=== PATIENT | male | born 1975 | race Caucasian/White ===

== ENCOUNTER 2018-01-02 12:32 | Observation (INO) ==
[2018-01-02 14:11] LABS: Basophils # 0.1 K/mcL (0.0-0.2); Basophils % 0.5 %; Eosinophils # 0.2 K/mcL (0.0-0.6); Eosinophils % 1.4 %; Hematocrit 43.8 % (37.5-50.1); Hemoglobin 15.3 g/dL (12.9-16.9); Immature Granulocytes % 0.7 % (0-4); Lymphocytes # 1.7 K/mcL (0.6-4.6); Lymphocytes % 15.2 %; Mean Corpuscular HGB Conc 34.9 g/dL (31.6-35.5); Mean Corpuscular Volume 94.6 fL (83.0-100.0); Monocytes % 8.9 %; Neutrophils # 8.3 K/mcL (1.6-8.9); Platelet Count 345 K/mcL (140-400); Red Blood Count 4.63 M/mcL (4.19-5.50); Segmented Neutrophils % 73.3 %
[2018-01-02 14:32] LABS: BUN/Creatinine Ratio 16 (6-26); Blood Urea Nitrogen 13 mg/dL (6-20); Calcium 9.1 mg/dL (8.6-10.3); Carbon Dioxide 29 mEq/L (23-29); Chloride 103 mEq/L (98-107); Glucose 89 mg/dL (70-105); Osmolality,Calculated 286 (280-300); Sodium 138 mEq/L (136-145); eGFR For African Americans > 60 (> 60); eGFR For Non-African Americans > 60 (> 60)
[2018-01-02] MEDS ORDERED: Aspirin 325 MG TABLET PO ONE (14:43)
[2018-01-02] MEDS ORDERED: Nitroglycerin 0.4 MG TAB.SUBL SL PRN (14:43)
--- NOTE | 2018-01-02 14:44 | Emergency Department Note ---
Disposition Clinical Impression: Chest pain Disposition: Admitted As Inpatient Condition: Good General Adult HPI - General Chief complaint: ED Shortness of Breath/Dyspnea Stated complaint: CP/CIPRIANO Time Seen by Provider: 01/02/18 14:40 Source: patient Limitations: no limitations - History of Present Illness Pain Scale: 6 - Related Data Home Medications Medication Instructions Recorded Confirmed No Known Home Drugs 01/02/18 01/02/18 Allergies Allergy/AdvReac Type Severity Reaction Status Date / Time No Known Allergies Allergy Verified 01/02/18 12:47 Past Medical History - Past Medical History Medical history: Reports: arthritis Surgical history: Reports: non-contributory Psychiatric history: Reports: no psych history - Social History Smoking Status: Heavy tobacco smoker Smokeless Tobacco Status: Yes (occassional) Alcohol use: Reports: rarely Drug use: Reports: none Physical Exam - General Limitations: no limitations General appearance: alert, in no apparent distress Course Vital Signs Temperature 97.9 F 01/02/18 12:43 Pulse Rate 126 01/02/18 12:43 Respiratory Rate 18 01/02/18 12:43 Blood Pressure 131/93 01/02/18 12:43 O2 Sat by Pulse Oximetry 99 01/02/18 12:43 Temperature 98.1 F 01/02/18 16:12 Pulse Rate 83 01/02/18 16:12 Respiratory Rate 16 01/02/18 16:12 Blood Pressure 133/73 01/02/18 16:12 O2 Sat by Pulse Oximetry 99 01/02/18 16:12 Oxygen Delivery Oxygen Delivery Room Air Medical Decision Making - Lab Data Result diagrams: 01/02/18 13:41 01/02/18 13:41 Lab Results 01/02/18 01/02/18 01/02/18 Range/Units 13:41 13:41 13:41 WBC 11.3 H (4.3-11.1) K/mcL RBC 4.63 (4.19-5.50) M/mcL Hgb 15.3 (12.9-16.9) g/dL Hct 43.8 (37.5-50.1) % MCV 94.6 (83.0-100.0) fL MCH 33.0 (28.0-33.3) pg MCHC 34.9 (31.6-35.5) g/dL RDW 13.0 (11.5-14.5) % Plt Count 345 (140-400) K/mcL MPV 10.0 (9.4-12.4) fL Immature Gran % 0.7 (0-4) % Seg Neutrophils % 73.3 % Lymphocytes % 15.2 % Monocytes % 8.9 % Eosinophils % 1.4 % Basophils % 0.5 % Neutrophils # 8.3 (1.6-8.9) K/mcL Lymphocytes # 1.7 (0.6-4.6) K/mcL Monocytes # 1.0 (0.0-1.3) K/mcL Eosinophils # 0.2 (0.0-0.6) K/mcL Basophils # 0.1 (0.0-0.2) K/mcL D-Dimer (0-500) ng/mLFEU Sodium 138 (136-145) mEq/L Potassium 4.0 (3.5-5.1) mEq/L Chloride 103 (98-107) mEq/L Carbon Dioxide 29 (23-29) mEq/L BUN 13 (6-20) mg/dL Creatinine 0.81 (0.70-1.30) mg/dL Est GFR ( Amer) > 60 (> 60) Est GFR (Non-Af Amer) > 60 (> 60) BUN/Creatinine Ratio 16 (6-26) Glucose 89 (70-105) mg/dL Calculated Osmolality 286 (280-300) Lactic Acid (0.5-2.2) mmol/L Calcium 9.1 (8.6-10.3) mg/dL Troponin I < 0.03 (< 0.04) ng/mL B-Natriuretic Peptide 7 (Less than 100) pg/mL Triglycerides 36 (< 150) mg/dL Cholesterol 136 (< 200) mg/dL LDL Cholesterol, Calc 69 (0-99) mg/dL VLDL Cholesterol, Calc 7 (< 31) mg/dL HDL Cholesterol 60 H (40-59) mg/dL Cholesterol/HDL Ratio 2.3 (0-4.9) 01/02/18 01/02/18 Range/Units 13:41 14:00 WBC (4.3-11.1) K/mcL RBC (4.19-5.50) M/mcL Hgb (12.9-16.9) g/dL Hct (37.5-50.1) % MCV (83.0-100.0) fL MCH (28.0-33.3) pg MCHC (31.6-35.5) g/dL RDW (11.5-14.5) % Plt Count (140-400) K/mcL MPV (9.4-12.4) fL Immature Gran % (0-4) % Seg Neutrophils % % Lymphocytes % % Monocytes % % Eosinophils % % Basophils % % Neutrophils # (1.6-8.9) K/mcL Lymphocytes # (0.6-4.6) K/mcL Monocytes # (0.0-1.3) K/mcL Eosinophils # (0.0-0.6) K/mcL Basophils # (0.0-0.2) K/mcL D-Dimer 269 (0-500) ng/mLFEU Sodium (136-145) mEq/L Potassium (3.5-5.1) mEq/L Chloride (98-107) mEq/L Carbon Dioxide (23-29) mEq/L BUN (6-20) mg/dL Creatinine (0.70-1.30) mg/dL Est GFR ( Amer) (> 60) Est GFR (Non-Af Amer) (> 60) BUN/Creatinine Ratio (6-26) Glucose (70-105) mg/dL Calculated Osmolality (280-300) Lactic Acid 1.3 (0.5-2.2) mmol/L Calcium (8.6-10.3) mg/dL Troponin I (< 0.04) ng/mL B-Natriuretic Peptide (Less than 100) pg/mL Triglycerides (< 150) mg/dL Cholesterol (< 200) mg/dL LDL Cholesterol, Calc (0-99) mg/dL VLDL Cholesterol, Calc (< 31) mg/dL HDL Cholesterol (40-59) mg/dL Cholesterol/HDL Ratio (0-4.9) Attestation Statement - Attestation Attestation: I examined this patient and my medical decision-making was reviewed with the Resident Physician. I agree with the documented findings, disposition and treatment plan as described except to the extent set forth below. Quoc-ag-ajns time provided Patient arrives complaining of substernal chest discomfort after he "was doing a lot of walking." Pain persists. He denies having at history of ordered artery disease. He states he had similar symptoms several years ago and admission was requested but he could not stay. He appears in no acute distress on exam but does appear older than his stated age
--- NOTE | 2018-01-02 14:57 | Emergency Department Note ---
Disposition Clinical Impression: Chest pain Qualifiers: Chest pain type: unspecified Qualified Code(s): R07.9 - Chest pain, unspecified Disposition: Admitted As Inpatient Condition: Good Time of Disposition: 15:35 General Adult HPI - General Chief complaint: ED Shortness of Breath/Dyspnea Stated complaint: CP/CIPRIANO Time Seen by Provider: 01/02/18 14:40 Source: patient Mode of arrival: ambulatory Limitations: no limitations Nursing Notes Reviewed: Yes Vital Signs Reviewed: Yes - History of Present Illness HPI Narrative: 42-year-old male with no significant past medical history presenting to the emergency Department chief complaint of chest pain. Patient states around 11: 00 this afternoon he was walking when he started having substernal chest pain that radiated across his chest. Patient denies nausea or diaphoresis with these symptoms. Patient does have significant family cardiac history. Patient denies ever having a workup. He states approximately one year ago he was seen in the emergency Department for similar symptoms and was supposed to be admitted but left AMA due to work requirements. Patient does still disclose substernal chest pain at this time. Denies shortness of breath, dizziness, or syncope. Denies being on any anticoagulation. Pain Scale: 6 - Related Data Home Medications Medication Instructions Recorded Confirmed No Known Home Drugs 01/02/18 01/02/18 Allergies Allergy/AdvReac Type Severity Reaction Status Date / Time No Known Allergies Allergy Verified 01/02/18 12:47 All systems ED: reviewed and negative except as stated. Cardiovascular: Reports: chest pain, dyspnea on exertion Past Medical History - Past Medical History Medical history: Reports: arthritis Surgical history: Reports: non-contributory Psychiatric history: Reports: no psych history - Social History Smoking Status: Heavy tobacco smoker Smokeless Tobacco Status: Yes (occassional) Alcohol use: Reports: rarely Drug use: Reports: none Physical Exam - General Limitations: no limitations General appearance: alert, in no apparent distress - Head Head exam: atraumatic, normocephalic, normal inspection - Eye Eye exam: Present: normal appearance. Absent: scleral icterus, conjunctival injection - ENT ENT exam: normal exam, mucous membranes moist - Neck Neck exam: Present: normal inspection, full ROM. Absent: tenderness, meningismus - Chest Chest inspection: Present: normal inspection, symmetric chest wall rise. Absent : tenderness, rash - Respiratory Respiratory exam: Present: normal lung sounds bilaterally. Absent: respiratory distress, wheezes - Cardiovascular Cardiovascular exam: Present: normal rhythm, tachycardia, normal heart sounds - Abdominal Exam Abdominal exam: Present: Non-Tender. Absent: distention, guarding, rebound - Extremities Exam Extremities exam: Present: normal inspection, full ROM - Neurological Exam Neurological exam: Present: alert, oriented X3 - Psychiatric Psychiatric exam: Present: normal affect, normal mood - Skin Skin exam: Present: warm, intact Course Course Narrative: 42-year-old male presenting to the emergency department for chest pain. Patient EKG shows nonspecific ST and T-wave abnormalities which is new compared to previous. Patient does state this chest pain occurred on exertion. She has labs completed and within normal limits along with chest x-ray. Due to patient' s tachycardia on exam and chest pain we will also perform a d-dimer. Patient is alert and oriented 3 in the room. Tachycardic but otherwise stable vital signs. Disposition most likely admission but pending results. Patient agrees with this plan. - Reevaluation(s) Reevaluation #1: Patient's d-dimer within normal limits. At this time we will admit the patient for chest pain. I spoke with the hospice on-call Dr. Sherwood who agrees to accept the patient. Patient is alert and oriented 3 in the room with tachycardia but otherwise stable vital signs. Patient does disclose after 2 nitroglycerin resolving chest pain. Vital Signs Temperature 97.9 F 01/02/18 12:43 Pulse Rate 126 01/02/18 12:43 Respiratory Rate 18 01/02/18 12:43 Blood Pressure 131/93 01/02/18 12:43 O2 Sat by Pulse Oximetry 99 01/02/18 12:43 Temperature 97.9 F 01/02/18 12:43 Pulse Rate 126 01/02/18 12:43 Respiratory Rate 18 01/02/18 12:43 Blood Pressure 131/93 01/02/18 12:43 O2 Sat by Pulse Oximetry 99 01/02/18 12:43 Oxygen Delivery Oxygen Delivery Room Air Medical Decision Making - Lab Data Result diagrams: 01/02/18 13:41 01/02/18 13:41 Lab Results 01/02/18 01/02/18 01/02/18 Range/Units 13:41 13:41 13:41 WBC 11.3 H (4.3-11.1) K/mcL RBC 4.63 (4.19-5.50) M/mcL Hgb 15.3 (12.9-16.9) g/dL Hct 43.8 (37.5-50.1) % MCV 94.6 (83.0-100.0) fL MCH 33.0 (28.0-33.3) pg MCHC 34.9 (31.6-35.5) g/dL RDW 13.0 (11.5-14.5) % Plt Count 345 (140-400) K/mcL MPV 10.0 (9.4-12.4) fL Immature Gran % 0.7 (0-4) % Seg Neutrophils % 73.3 % Lymphocytes % 15.2 % Monocytes % 8.9 % Eosinophils % 1.4 % Basophils % 0.5 % Neutrophils # 8.3 (1.6-8.9) K/mcL Lymphocytes # 1.7 (0.6-4.6) K/mcL Monocytes # 1.0 (0.0-1.3) K/mcL Eosinophils # 0.2 (0.0-0.6) K/mcL Basophils # 0.1 (0.0-0.2) K/mcL D-Dimer (0-500) ng/mLFEU Sodium 138 (136-145) mEq/L Potassium 4.0 (3.5-5.1) mEq/L Chloride 103 (98-107) mEq/L Carbon Dioxide 29 (23-29) mEq/L BUN 13 (6-20) mg/dL Creatinine 0.81 (0.70-1.30) mg/dL Est GFR ( Amer) > 60 (> 60) Est GFR (Non-Af Amer) > 60 (> 60) BUN/Creatinine Ratio 16 (6-26) Glucose 89 (70-105) mg/dL Calculated Osmolality 286 (280-300) Lactic Acid (0.5-2.2) mmol/L Calcium 9.1 (8.6-10.3) mg/dL Troponin I < 0.03 (< 0.04) ng/mL B-Natriuretic Peptide 7 (Less than 100) pg/mL 01/02/18 01/02/18 Range/Units 13:41 14:00 WBC (4.3-11.1) K/mcL RBC (4.19-5.50) M/mcL Hgb (12.9-16.9) g/dL Hct (37.5-50.1) % MCV (83.0-100.0) fL MCH (28.0-33.3) pg MCHC (31.6-35.5) g/dL RDW (11.5-14.5) % Plt Count (140-400) K/mcL MPV (9.4-12.4) fL Immature Gran % (0-4) % Seg Neutrophils % % Lymphocytes % % Monocytes % % Eosinophils % % Basophils % % Neutrophils # (1.6-8.9) K/mcL Lymphocytes # (0.6-4.6) K/mcL Monocytes # (0.0-1.3) K/mcL Eosinophils # (0.0-0.6) K/mcL Basophils # (0.0-0.2) K/mcL D-Dimer 269 (0-500) ng/mLFEU Sodium (136-145) mEq/L Potassium (3.5-5.1) mEq/L Chloride (98-107) mEq/L Carbon Dioxide (23-29) mEq/L BUN (6-20) mg/dL Creatinine (0.70-1.30) mg/dL Est GFR ( Amer) (> 60) Est GFR (Non-Af Amer) (> 60) BUN/Creatinine Ratio (6-26) Glucose (70-105) mg/dL Calculated Osmolality (280-300) Lactic Acid 1.3 (0.5-2.2) mmol/L Calcium (8.6-10.3) mg/dL Troponin I (< 0.04) ng/mL B-Natriuretic Peptide (Less than 100) pg/mL - EKG Data EKG #1 EKG attestation: Yes I reviewed and interpreted this EKG. EKG results narrative: Sinus tachycardia. Nonspecific ST and T wave abnormality. 127 bpm. LA interval 161, QRS 89. Compared to previous EKG on 04/15/2017 new nonspecific changes noted
[2018-01-02 15:01] LABS: Troponin I < 0.03 ng/mL (< 0.04)
--- NOTE | 2018-01-02 16:26 | Internal Med History&Physical ---
Date of Encounter: 01/02/18 Time of Encounter: 16:20 Internal Medicine - H&P: HPI Chief complaint: Chest pain Admitted From: Emergency Dept Plans for Post Hospital Care: Home History of present illness: Mr. Dominguez is a 42 year old man who presents with central chest pain associated with dizziness and mild sob. His symptoms began while out on a walk earlier today. He is currently chest pain free and his first troponin is wnl. His ECG showed ST w/o ischemic changes. He has little PMH except IVDA which he states he gave up last summer. He denies illegal drug use. Past Med Surg Social Fam HX - Past Medical History Medical history: arthritis Psychiatric history: no psych history - Past Surgical History Surgical History: no surgical history - Social History Smoking Status: Heavy tobacco smoker Packs per day: 2.5 Smokeless Tobacco Status: Yes (occassional) Alcohol use: occasionally Drug use: none - Family History Father Living Status: Age at : 38 Hx Family Cardiac Disorders: Yes Hx Family Respiratory Disorders: Yes Internal Medicine - H&P: Meds No Known Home Drugs 01/02/18 [History] 3 Allergy/AdvReac Type Severity Reaction Status Date / Time No Known Allergies Allergy Verified 01/02/18 12:47 All Systems PM: A 10-system review of systems was performed and is negative for pertinent findings except as documented above in the HPI. - Constitutional Constitutional: anorexia - EENT Eyes: no blurry vision, no change in vision, no loss of vision Nose, mouth and throat: no bleeding gums, no epistaxis - Cardiovascular Cardiovascular ROS IM: chest pain, lightheadedness, no diaphoresis, no dyspnea, no palpitations - Gastrointestinal Gastrointestinal: no abdominal pain, no coffee ground emesis, no diarrhea - Neurological Neurological ROS: dizziness, no behavioral changes, no confusion, no disequilibrium, no numbness, no paresthesias - Psychiatric Psychiatric: no hallucinations - Constitutional Vitals: Temp Pulse Resp BP Pulse Ox 98.1 F 83 16 133/73 99 01/02/18 16:12 01/02/18 16:12 01/02/18 16:12 01/02/18 16:12 01/02/18 16:12 General appearance: Present: cooperative, A&O X 3, pleasant, no acute distress, underweight - Head Head exam: Present: atraumatic, normocephalic - Eye Eye exam: Present: EOMI, PERRL, conjuntiva pink, sclera anicteric Pupils: Present: PERRL - Neck Neck exam general surgery: Present: supple, trachea midline. Absent: lymphadenopathy, thyromegaly - Respiratory Respiratory exam: Present: CTAB. Absent: accessory muscle use, rales, rhonchi, wheezes - Cardiovascular Cardiovascular exam: Present: +S1, +S2, tachycardia. Absent: diastolic murmur, gallop, RRR, rubs, systolic murmur - GI/Abdominal GI/Abdominal exam: Present: normal bowel sounds, soft, no peritoneal signs. Absent: distended, tenderness - Extremities Exam Extremities exam: Present: warm. Absent: calf tenderness, cyanotic, pedal edema - Neurological Exam Neurological exam: Present: alert, CN II-XII intact, oriented X3, no focal deficits. Absent: pronater drift, facial droop, speech deficit - Skin Skin exam: Present: dry, intact Internal Med - H&P Results - Labs CBC & Chem 7: 01/02/18 13:41 01/02/18 13:41 - Assessment and plan (1) Chest pain Current Visit: Yes Status: Acute Assessment and plan: Admit to telemetry bed Trend Kallie ECG showed ST w/o ischemic changes Initial troponin wnl Exercise Nuclear stress test in am Qualifiers: Chest pain type: precordial pain Qualified Code(s): R07.2 - Precordial pain (2) Sinus tachycardia Current Visit: Yes Status: Acute Assessment and plan: Low dose BB given Rate controlled now UDS to r/o Meth or cocaine use given h/o IVDA (3) Underweight Current Visit: Yes Status: Acute Assessment and plan: Concern for ongoing IVDA Code(s): R63.6 - Underweight - Time Spent With Patient Total time spent is greater than 50% in coordination of care (as documented) at patient's floor/unit and/or counseling patient: 25 - 35 minutes
[2018-01-02 16:43] LABS: Chol/HDL Ratio 2.3 (0-4.9); Cholesterol 136 mg/dL (< 200); HDL Cholesterol 60 mg/dL (40-59); LDL Cholesterol,Calculated 69 mg/dL (0-99); Triglycerides 36 mg/dL (< 150)
--- NOTE | 2018-01-02 17:30 | Electrocardiograph Report ---
[facility] Test Date: 2018-01-02 Pat Name: Matt Dominguez Department: 104 Room: 3B46 Gender: M [employer]: GERRI : 1975 Requested By: Ziyad Knight Order Number: [id number] Reading MD: Everett Rivera Measurements Intervals [place] Rate: 127 P: 71 ND: 161 QRS: 78 QRSD: 84 T: 28 QT: 284 QTc: 359 Interpretive Statements SINUS TACHYCARDIA NONSPECIFIC ST & T-WAVE ABNORMALITY ABNORMAL RHYTHM ECG INTERPRETATION BASED ON A DEFAULT AGE OF 40 YEARS Electronically Signed On 01-02-2018 17:28:31 EDT by Everett Rivera
[2018-01-02 20:26] LABS: Amphetamine Screen,Urine Negative ng/mL (Cutoff=1000); Barbiturate Screen,Urine Negative ng/mL (Cutoff=200); Benzodiazepines Screen,Urine Negative ng/mL (Cutoff=200); Cannabinoid Screen,Urine Negative ng/mL (Cutoff = 50); Cocaine Screen,Urine Negative ng/mL (Cutoff= 300); Opiate Screen,Urine Positive ng/mL (Cutoff=300); Phencyclidine Screen,Urine Negative ng/mL (Cutoff=25)
[2018-01-02] MEDS: Ibuprofen 600 MG TABLET PO PRN (22:58)
[2018-01-03 01:52] LABS: Prothrombin Time 10.2 Seconds (9.4-12.1)
[2018-01-03 02:06] LABS: Alanine Aminotransferase 15 Units/L (7-52); Albumin 3.8 g/dL (3.5-5.7); Albumin/Globulin Ratio 1.6 (1.1-2.2); Alkaline Phosphatase 58 Units/L (34-104); Aspartate Amino Transferase 12 Units/L (13-39); BUN/Creatinine Ratio 15 (6-26); Bilirubin,Total 0.3 mg/dL (0.3-1.0); Blood Urea Nitrogen 18 mg/dL (6-20); Carbon Dioxide 30 mEq/L (23-29); Chloride 107 mEq/L (98-107); Globulin 2.4 g/dL (2.4-3.5); Glucose 103 mg/dL (70-105); Magnesium 2.3 mg/dL (1.6-2.6); Osmolality,Calculated 300 (280-300); Potassium 4.1 mEq/L (3.5-5.1); Sodium 144 mEq/L (136-145); Total Protein 6.2 g/dL (6.4-8.9); eGFR For African Americans > 60 (> 60); eGFR For Non-African Americans > 60 (> 60)
[2018-01-03 02:10] LABS: Basophils # 0.1 K/mcL (0.0-0.2); Basophils % 0.6 %; Eosinophils # 0.4 K/mcL (0.0-0.6); Eosinophils % 4.1 %; Hematocrit 43.5 % (37.5-50.1); Hemoglobin 14.9 g/dL (12.9-16.9); Immature Granulocytes % 0.4 % (0-4); Lymphocytes # 2.3 K/mcL (0.6-4.6); Mean Corpuscular HGB Conc 34.3 g/dL (31.6-35.5); Mean Corpuscular Hemoglobin 32.7 pg (28.0-33.3); Mean Corpuscular Volume 95.4 fL (83.0-100.0); Mean Platelet Volume 10.1 fL (9.4-12.4); Monocytes # 0.9 K/mcL (0.0-1.3); Monocytes % 10.1 %; Neutrophils # 5.6 K/mcL (1.6-8.9); Platelet Count 313 K/mcL (140-400); Red Blood Count 4.56 M/mcL (4.19-5.50); Red Cell Distribution Width 13.2 % (11.5-14.5); Segmented Neutrophils % 59.8 %
[2018-01-03] MEDS: Ibuprofen 600 MG TABLET PO PRN (05:59)
[2018-01-03 07:11] VITALS: BP 142/98
[2018-01-03] MEDS ORDERED: Aspirin 81 MG TAB.CHEW PO SCH (09:00)
[2018-01-03 11:38] LABS: Estimated Average Glucose 108 mg/dl; Hemoglobin A1C 5.4 %
== END 2018-01-03 11:43 | disposition left against medical advice (07) ==
LOC: 3BNU 12:32 → EMEROO 12:32 → 3BNU 15:49
PROVIDERS: ADMIT Internal Medicine; ATTEND Registered Nurse